=== PATIENT | female | born 1990 | race Caucasian/White ===

== ENCOUNTER 2022-01-14 11:14 | Emergency (ER) | payer SELFPAY ==
[2022-01-14 11:52] VITALS: BP 123/78
== END 2022-01-15 05:00 | disposition left against medical advice (07) ==
LOC: ED 11:14
DX: R42 Dizziness and giddiness (principal); R73.9 Hyperglycemia, unspecified; Z53.21 Procedure and treatment not carried out due to patient leaving prior to being seen by health care provider